=== PATIENT | female | born 2000 | race Caucasian/White ===

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

== ENCOUNTER 2021-05-25 08:49 | Emergency (ER) | payer OTHER ==
[~2021-05-25] VITALS: Ht 170.2 cm; Wt 55.7 kg
[~2021-05-25 08:49] MED LIST changes: +ONDA4TAB12 PO
--- NOTE | 2021-05-25 09:42 | PHYS DOC ---
Past Medical History Past Medical History: No Pertinent History Past Surgical History: No Surgical History Additional Past Surgical Histo: wisdom teeth Smoking Status: Never Smoker Alcohol Use: None Drug Use: None General Adult EDM: Chief Complaint: HEADACHE HPI: HPI: Patient is a 21 year old female with history of migraines who presents with headache. Headache started on Thursday of this week and has been persistent. Feels like a band around her head. Throbbing. Associated with photophobia, phonophobia. Started with a mild headache and progressed throughout the day to become more severe. Not thunderclap. It feels similar to previous migraines headaches aside from a visual aura and the duration of the headache. She was seen in urgent care and was given a prescription for headache medication (unknown which) which she did not end up taking. She is not on any immunosuppressant medications. Denies neck pain, fever. Received full course of vaccinations through her teenage years. No estrogen-containing medications. Does have a Nexplanon implant in her left upper extremity. Is not currently sexually active. Review of Systems: Review of Systems: Constitutional: Denies fever or chills. [] Eyes: Reports occasional blurry vision. [] HENT: Denies nasal congestion or sore throat. [] Respiratory: Denies cough or shortness of breath. [] Cardiovascular: Denies chest pain or edema. [] GI: Denies abdominal pain, nausea, vomiting, bloody stools or diarrhea. [] : Denies dysuria. [] Musculoskeletal: Denies back pain or joint pain. [] Integument: Denies rash. [] Neurologic: Reports headache. Denies focal weakness or sensory changes. [] Endocrine: Denies polyuria or polydipsia. [] Lymphatic: Denies swollen glands. [] Psychiatric: Denies depression or anxiety. [] Heart Score: C/O Chest Pain: N/A Allergies: Allergies: Allergies Coded Allergies Type Severity Reaction Last Updated Verified carbamazepine Allergy Severe andrew anton 12/22/18 Yes Physical Exam: PE: Constitutional: Well developed, well nourished, no acute distress, non-toxic appearance. [] HENT: Normocephalic, atraumatic, bilateral external ears normal, oropharynx moist, no oral exudates, nose normal. [] Eyes: PERRLA, EOMI, conjunctiva normal, no discharge. [] Neck: Normal range of motion. No meningismus. Moves head freely without evidence of pain. Cardiovascular:Heart rate regular rhythm, no murmur [] Lungs & Thorax: Bilateral breath sounds clear to auscultation [] Abdomen: Bowel sounds normal, soft, no tenderness, no masses, no pulsatile masses. [] Skin: Warm, dry, no erythema, no rash. [] Back: No tenderness, no CVA tenderness. [] Extremities: No tenderness, no cyanosis, no clubbing, ROM intact, no edema. [] Neurologic alert, oriented to person, place, time. Face is symmetric. Speech is normal. Visual samson intact. Pupils equal, round, reactive to light. Cranial nerves III-XII intact. 5/5 strength in bilateral upper and lower extremities in all dermatomes. No dysmetria with [id number] or [id number]-ao-[id number] testing. Gait is stable. Psychologic: Affect normal, judgement normal, mood normal. [] EKG: EKG: [] Radiology/Procedures: Radiology/Procedures: [] Course & Med Decision Making: Course & Med Decision Making Pertinent Labs and Imaging studies reviewed. (See chart for details) Patient is 21-year-old female with history of migraines who presents with headache with photophobia, phonophobia, visual aura. Neuro exam is intact as above. Patient is well-appearing. No headache red flags for serious cause of headache (CVT, SAH, meningitis, ICH) such as estrogen-containing medications, thunderclap headache, trauma, immunosuppression, fever/chills/meningismus. Will not pursue neuro-imaging at this time. Feel this is likely a primary headache and will treat with Compazine, Benadryl, ketorolac, IV fluids. 0942 Good response to migraine cocktail. Now headache is slowly improving. Patient is requesting discharge. Will follow up with her PCP. I recommended keeping a headache journal. [id number] Kale Disclaimer: Kale Disclaimer: This electronic medical record was generated, in whole or in part, using a voice recognition dictation system. Departure Departure Impression: Primary Impression: Headache Additional Impression: Migraine Disposition: 01 HOME / SELF CARE / HOMELESS Condition: STABLE Referrals: NO PCP (PCP) Patient Instructions: Migraine Headache Additional Instructions: Please schedule follow-up appoint with your primary care doctor. Please keep a headache journal documenting when you have headaches, what they feel like, any triggering factors, any alleviating factors. These can be very helpful to follow-up. If he develop any new concerning symptoms such as fever/chills, severe neck pain , weakness, numbness, speech difficulty, vision changes, or other symptoms you can return to the emergency department for reevaluation. MELIA GARCIA MD May 25, 2021 09:42
[2021-05-25] MEDS ORDERED: KETOROLAC 15 MG/ML VIAL. IVP ONE (09:45)
[2021-05-25] MEDS ORDERED: PROCHLORPERAZINE 10 MG/2 ML VIAL. IV ONE (09:45)
[2021-05-25] MEDS ORDERED: diphenhydrAMINE 50 MG/ML VIAL IVP ONE (09:45)
[2021-05-25] MEDS ORDERED: IV NORMAL SALINE 1000ML BAG 1,000 ML IV ONE (09:45)
[2021-05-25 10:00] VITALS: BP 101/59
== END 2021-05-25 11:00 | disposition home or self-care (01) ==
LOC: ER 08:49
DX: G43.909 Migraine, unspecified, not intractable, without status migrainosus (principal); Z88.8 Allergy status to other drugs, medicaments and biological substances
CPT/HCPCS: 96361; 96374; 96375; 99284; J0780; J1200; J1885; J7030